=== PATIENT | male | born 1945 | race Caucasian/White ===

== ENCOUNTER 2017-12-15 12:07 | Day surgery (SDC) | payer OTHER ==
[~2017-12-15] VITALS: Ht 177.8 cm; Wt 62.0 kg
[2017-12-15] MEDS ORDERED: VALTREX1000 MG PO (12:36)
[2017-12-15] MEDS ORDERED: MULTIVITAMIN1 EAC2 PO (12:36)
[2017-12-15] MEDS ORDERED: ALPRAZOLAM2 MG PO (12:37)
[2017-12-15] MEDS ORDERED: ANACIN 400-321 EACH PO (12:38)
[2017-12-15 13:20] LABS: HEMATOCRIT 43.8 % (38.0-50.0); HEMOGLOBIN 15.5 G/DL (12.5-16.6); MCH 33.8 PG (29.0-34.0); MCHC 35.4 G/DL (30.0-36.0); MCV 95.6 FL (86-99); PLATELET COUNT 197 K/uL (156-360); RBC DIS.WIDTH-CV 12.3 % (11.8-14.6); RBC DIS.WIDTH-SD 43.5 % (39-53); RED BLOOD COUNT 4.58 M/uL (4.00-5.50); WHITE BLOOD COUNT 14.9 K/uL (4.1-10.2)
[2017-12-15 13:30] LABS: CHLORIDE 105 mEq/L (99-109); POTASSIUM 4.4 mEq/L (3.7-5.4); SODIUM 137 mEq/L (136-147)
[2017-12-15 13:32] LABS: GLUCOSE 130 mg/dL (70-99); PTT 30.9 SEC (25-37)
[2017-12-15 13:36] LABS: GFR ESTIMATE (CALCULATED) > 59 mL/min/ (58.99-99999)
[2017-12-15 13:37] LABS: UREA NITROGEN (BUN) 8 mg/dL (9-23)
[2017-12-15 19:29] VITALS: BP 157/85
[2017-12-15 23:07] VITALS: BP 156/83
[2017-12-16 05:29] VITALS: BP 127/82
[2017-12-16 09:05] VITALS: BP 135/89
[2017-12-16] MEDS ORDERED: MOTRIN600 MG PO (14:02)
[2017-12-16] MEDS ORDERED: HYDROCODON-ACE1 EAC7 PO (14:02)
[2017-12-16] MEDS ORDERED: COLACE100 MG PO (14:02)
== END 2017-12-16 14:32 | disposition home or self-care (01) ==
LOC: CATH 12:07 → 2SOUTH 15:48 → 4EAST 15:48 → ENRESERV 16:51 → 4EAST 18:03
PROVIDERS: Thoracic Surgery (Cardiothoracic Vascular Surgery)
PROC: 02H43JZ Insertion of Pacemaker Lead into Coronary Vein, Percutaneous Approach (ICD-10-PCS; principal; 2017-12-15)
PROC: 0JH606Z Insertion of Pacemaker, Dual Chamber into Chest Subcutaneous Tissue and Fascia, Open Approach (ICD-10-PCS; principal; 2017-12-15)
PROC: 02H63JZ Insertion of Pacemaker Lead into Right Atrium, Percutaneous Approach (ICD-10-PCS; principal; 2017-12-15)
PROC: 02HK3JZ Insertion of Pacemaker Lead into Right Ventricle, Percutaneous Approach (ICD-10-PCS; principal; 2017-12-15)
DX: I44.2 Atrioventricular block, complete (principal); J44.9 Chronic obstructive pulmonary disease, unspecified; F41.1 Generalized anxiety disorder; I12.9 Hypertensive chronic kidney disease with stage 1 through stage 4 chronic kidney disease, or unspecified chronic kidney disease; E11.22 Type 2 diabetes mellitus with diabetic chronic kidney disease; N18.9 Chronic kidney disease, unspecified; F17.210 Nicotine dependence, cigarettes, uncomplicated; F12.90 Cannabis use, unspecified, uncomplicated
CPT/HCPCS: 71045; 80048; 85027; 85610; 85730; 93005; C1785; C1892; C1894; C1898; G0378; J0690; J2250; J3010; S0020